=== PATIENT | male | born 1960 | race Caucasian/White ===

== ENCOUNTER 2018-05-27 12:32 | Emergency (ER) | payer MEDICARE ==
[~2018-05-27] VITALS: Ht 170.2 cm; Wt 81.2 kg
[~2018-05-27 12:32] MED LIST: FLEXERIL PO; LORTAB 7.5 OR; ZITHROMAX500 MG OR; [UNRECOGNIZED DRUG - REMARK]
[2018-05-27 13:04] LABS: IMMATURE GRANULOCYTES 0.4 % (0.0-5.0); MEAN CORPUSCULAR HGB 33.3 pG CALC (26.0-32.0); MEAN CORPUSCULAR HGB CONC 32.2 g/L CALC (32.0-36.0); NEUT# 9.27 thou/uL (1.82-7.42); RED BLOOD COUNT 3.15 mill/uL (4.70-6.10); RED CELL DISTRI WIDTH 14.4 % (11.5-15.5)
[2018-05-27 13:24] LABS: HEMATOCRIT 32.6 % (39.0-50.0); HEMOGLOBIN 10.5 g/dl (14.0-18.0); MEAN CELL VOLUME 103.5 fL CALC (80.0-100.0)
[2018-05-27 14:09] LABS: ALBUMIN 3.4 g/dL (3.2-5.0); ALKALINE PHOSPHATASE 74 u/l (38-126); ANION GAP 17 (6-22 (CALC)); BILIRUBIN, TOTAL 0.5 mg/dL (0.0-1.4); BUN 52 mg/dL (9-20); BUN/CREATININE RATIO 5 (12-20 (CALC)); CARBON DIOXIDE 22 mmol/l (22-30); CHLORIDE 104 mmol/l (95-108); GFR 5 ML/MIN (>=60 (CALC)); GFR FOR AFR.AMER. 6 ML/MIN (>=60 (CALC)); LIPASE 257 u/l (23-300); POTASSIUM 4.7 mmol/l (3.5-5.1); SGOT/AST 24 u/l (17-59); SODIUM 138 mmol/l (137-146); TOTAL PROTEIN 5.9 g/dL (6.3-8.2)
[2018-05-27 14:27] LABS: CREATININE 10.2 mg/dL (0.7-1.3)
[2018-05-27] MEDS ORDERED: LISINOPRIL2.5 MG PO (15:33)
[2018-05-27] MEDS ORDERED: METOPROL TAR25 MG PO (15:33)
[2018-05-27] MEDS ORDERED: DAPSONE25 MG PO (15:34)
[2018-05-27] MEDS ORDERED: SODIUM BICARBI650 MG PO (15:35)
[2018-05-27] MEDS ORDERED: MULTIVITAMIN (15:36)
[2018-05-27 16:46] VITALS: BP 158/73
== END 2018-05-27 16:46 ==
LOC: ED 12:32
PROVIDERS: Emergency Medicine
DX: J18.9 Pneumonia, unspecified organism (principal); N19 Unspecified kidney failure; F17.200 Nicotine dependence, unspecified, uncomplicated; R06.02 Shortness of breath; R07.9 Chest pain, unspecified
CPT/HCPCS: J0692; J1650